=== PATIENT | female | born 1990 ===

== ENCOUNTER 2021-05-08 06:25 | Inpatient (IN) | payer BC ==
[2021-05-08 07:40] VITALS: BMI 26.9
[2021-05-08] MEDS ORDERED: OXYTOCIN 20 UNITS in 0.9% NS 20 UNIT/1,000 ML INFUS.BAG IV ONE ×2 (07:51→10:09)
[2021-05-08] MEDS ORDERED: ACETAMINOPHEN 325 MG TABLET (FP) PO PRN (08:29)
[2021-05-08] MEDS ORDERED: WITCH HAZEL 50% (TUCKS) 40 PAD/JAR PAD TP PRN (08:29)
[2021-05-08] MEDS ORDERED: BENZOCAINE 28 GM HEMORRHOIDAL OINTMENT TP PRN (08:29)
[2021-05-08] MEDS ORDERED: BISACODYL 10 MG SUPP.RECT RC PRN (08:29)
[2021-05-08] MEDS ORDERED: METHYLERGONOVINE MALEATE 0.2 MG/1 ML AMP IM PRN (08:29)
[2021-05-08] MEDS ORDERED: oxyCODONE HCL 5 MG TABLET PO PRN (08:29)
[2021-05-08] MEDS ORDERED: BENZOCAINE 20% 57 GM BOTTLE TP PRN (08:29)
[2021-05-08] MEDS ORDERED: DEXTROSE 5%-LACTATED RINGERS 1,000 ML IV SCH (08:30)
[2021-05-08] MEDS ORDERED: OXYTOCIN 20 UNITS in 0.9% NS 20 UNIT/1,000 ML INFUS.BAG IV SCH (08:30)
[2021-05-08 08:40] LABS: BASO % 0.3 % (0-2.0); HEMOGLOBIN 9.7 GM/dL (10.7-15.3); LYMPH % 19.7 % (8-40); MCH 22.7 pg (25.7-33.7); MCHC 30.3 g/dl (32.0-36.0); MEAN PLT VOLUME 9.6 fl (7.5-11.1); MONO % 6.8 % (3.8-10.2); NEUT % 73.2 % (42.8-82.8); PLATELET COUNT 303 10^3/uL (134-434); RBC 4.26 M/mm3 (3.60-5.2); RDW 17.1 % (11.6-15.6); WHITE BLOOD COUNT 8.5 K/mm3 (4.0-10.0)
[2021-05-08 09:01] LABS: CALCIUM 8.9 mg/dL (8.5-10.1)
[2021-05-08 09:02] LABS: BLOOD UREA NITROGEN 4.7 mg/dL (7-18)
[2021-05-08 09:05] LABS: CREATININE 0.5 mg/dL (0.55-1.3)
[2021-05-08 09:38] LABS: ACTIVATED PTT 26.2 SECONDS (25.2-36.5); INR 0.91 (0.83-1.09); PROTHROMBIN TIME (PATIENT) 10.4 SEC (9.7-13.0)
[2021-05-08] MEDS ORDERED: IBUPROFEN 600 MG TABLET (FP) PO ONE (10:08)
[2021-05-08] MEDS: PRENATAL VITAMINS W/ FOLIC ACID TABLET (FP) PO SCH (10:37)
[2021-05-08 12:37] LABS: HIV INTERPRETATION NEGATIVE (NEGATIVE)
[2021-05-09] MEDS: IBUPROFEN 600 MG TABLET (FP) PO PRN ×2 (03:15→20:27)
[2021-05-09] MEDS: PRENATAL VITAMINS W/ FOLIC ACID TABLET (FP) PO SCH (09:20)
[2021-05-09 10:02] LABS: BASO % 0.5 % (0-2.0); EOS % 0.7 % (0-4.5); HEMATOCRIT 27.8 % (32.4-45.2); HEMOGLOBIN 8.6 GM/dL (10.7-15.3); MCHC 30.8 g/dl (32.0-36.0); MEAN CELL VOLUME 74.6 fl (80-96); MEAN PLT VOLUME 9.5 fl (7.5-11.1); MONO % 7.4 % (3.8-10.2); NEUT % 62.4 % (42.8-82.8); PLATELET COUNT 235 10^3/uL (134-434); RBC 3.72 M/mm3 (3.60-5.2); RDW 17.3 % (11.6-15.6); WHITE BLOOD COUNT 7.3 K/mm3 (4.0-10.0)
[2021-05-09] MEDS: SENNOSIDES/DOCUSATE COMBO (SENNA PLUS) TABLET (UD) PO PRN (20:28)
[2021-05-10] MEDS: IBUPROFEN 600 MG TABLET (FP) PO PRN (09:11)
[2021-05-10] MEDS: PRENATAL VITAMINS W/ FOLIC ACID TABLET (FP) PO SCH (09:11)
[2021-05-11] MEDS: IBUPROFEN 600 MG TABLET (FP) PO PRN (06:11)
[2021-05-11] MEDS: SENNOSIDES/DOCUSATE COMBO (SENNA PLUS) TABLET (UD) PO PRN (06:11)
[2021-05-11] MEDS: PRENATAL VITAMINS W/ FOLIC ACID TABLET (FP) PO SCH (09:18)
[2021-05-11 10:23] VITALS: BP 129/86; PULSE 74; TEMP 97.5
== END 2021-05-11 15:15 | disposition home or self-care (01) | DRG 807 ==
LOC: JDEL 06:25 → JLDR 06:45 → JDEL 06:45 → J3W 10:20
PROVIDERS: ADMIT Obstetrics & Gynecology; ATTEND Obstetrics & Gynecology
PROC: 10E0XZZ Delivery of Products of Conception, External Approach (ICD-10-PCS; principal; 2021-05-08)
PROC: 0HQ9XZZ Repair Perineum Skin, External Approach (ICD-10-PCS; 2021-05-08)
DX: O34.211 Maternal care for low transverse scar from previous cesarean delivery (principal); Z37.0 Single live birth; O70.0 First degree perineal laceration during delivery; Z3A.39 39 weeks gestation of pregnancy
CPT/HCPCS: 36415; 59409; 80048; 85025; 85610; 85730; 86593; 86780; 86850; 86900; 86901; 87389; C9803; U0003; U0005